=== PATIENT | male | born 1965 | race African-American/Black ===

== ENCOUNTER 2016-09-03 22:10 | Emergency (ER) | payer SELFPAY ==
[~2016-09-03] VITALS: Ht 193 cm; Wt 113.0 kg
[2016-09-04] MEDS ORDERED: KETOROLAC 60MG/2ML VIAL IM ONE (01:00)
[2016-09-04] MEDS ORDERED: DIAZEPAM 5 MG TABLET PO ONE (01:00)
[2016-09-04 01:26] VITALS: BP 150/82
== END 2016-09-04 02:28 | disposition home or self-care (01) ==
LOC: ER 22:15
DX: M54.5 Low back pain (principal); G89.29 Other chronic pain; S39.012A Strain of muscle, fascia and tendon of lower back, initial encounter; X50.9XXA Other and unspecified overexertion or strenuous movements or postures, initial encounter; Y93.89 Activity, other specified; Y92.59 Other trade areas as the place of occurrence of the external cause; Y99.8 Other external cause status
CPT/HCPCS: 72100; 96372; 99283; 99284; J1885

== ENCOUNTER 2018-08-24 14:00 | Emergency (ER) | payer SELFPAY ==
[~2018-08-24] VITALS: Ht 182.9 cm; Wt 90.0 kg
[2018-08-24] MEDS ORDERED: LORAZEPAM 2MG/ML CPJ ONE (15:25)
[2018-08-24] MEDS ORDERED: LEVETIRACETAM 500MG PREMIX 100 ML IV ONE ×2 (15:45)
[2018-08-24] MEDS ORDERED: SODIUM CHLORIDE 0.9% 1,000 ML IV ONE (15:48)
[2018-08-24 16:18] LABS: BASOPHILS % 0.2 % (0.0-2.0); HEMATOCRIT. 37.3 % (42.0-52.0); HEMOGLOBIN. 12.2 g/dL (14.0-18.0); LYMPHOCYTES % 14.3 % (20.0-50.0); MEAN CORPUSCULAR HEMOGLOBIN 31.3 pg (28.0-32.0); MEAN CORPUSCULAR VOLUME 95.3 fL (80.0-94.0); MEAN PLATELET VOLUME 8.3 fl (7.4-10.4); MONOCYTES % 5.3 % (2.0-8.0); NEUTROPHILS % 80.2 % (40.0-76.0); PLATELET 207 x1000/uL (130-400); RED BLOOD CELL COUNT 3.91 mill/uL (4.7-6.1); RED CELL DISTRIBUTION WIDTH 14.8 % (11.6-14.6)
[2018-08-24 16:21] LABS: CHLORIDE 103 mEq/L (98-107)
[2018-08-24 16:22] LABS: INR 1.1; PROTHROMBIN TIME 10.8 sec (9.6-11.0)
[2018-08-24 16:25] LABS: ETHANOL BLOOD < 10 mg/dL
[2018-08-24] MEDS ORDERED: LORAZEPAM 2MG/ML CPJ IV ONE (16:30)
[2018-08-24 20:32] LABS: CLARITY URINE CLEAR (CLEAR); COLOR URINE YELLOW (YELLOW); KETONES URINE 2+ (NEGATIVE); LEUKOCYTE ESTERASE URINE NEGATIVE (NEGATIVE); NITRITE URINE NEGATIVE (NEGATIVE); OCCULT BLOOD URINE NEGATIVE (NEGATIVE); PH URINE 6.5 (4.5-8.0); PROTEIN URINE NEGATIVE (NEGATIVE); SPECIFIC GRAVITY URINE 1.022 (1.005-1.030); UROBILINOGEN URINE 0.2 E.U./dL (0.2-1.0)
[2018-08-24 20:53] LABS: *BARBITURATES SCREEN URINE NEGATIVE (NEGATIVE); *BENZODIAZEPINES SCREEN URINE NEGATIVE (NEGATIVE); *COCAINE SCREEN URINE NEGATIVE (NEGATIVE)
[2018-08-24 20:54] LABS: CANNABINOID URINE SCREEN PRESUMTIVE POSITIVE (NEGATIVE); METHADONE URINE SCREEN NEGATIVE (NEGATIVE); OPIATES URINE SCREEN NEGATIVE (NEGATIVE); PHENCYCLIDINE URINE SCREEN NEGATIVE (NEGATIVE)
[2018-08-24 20:55] LABS: *AMPHETAMINES SCREEN URINE NEGATIVE (NEGATIVE)
[2018-08-24 21:05] VITALS: BP 128/62
== END 2018-08-24 21:49 | disposition left against medical advice (07) ==
LOC: ER 14:00 → EDBEDREQ 18:45 → ENRESERV 20:47 → CANRESERV 20:47 → ER 21:49 → CANBEDREQ 23:02
DX: G40.901 Epilepsy, unspecified, not intractable, with status epilepticus (principal)
CPT/HCPCS: 36415; 70450; 71045; 80053; 80305; 80320; 81003; 85025; 85610; 93005; 96365; 96366; 96368; 96375; 99284; J1953; J2060; J7030; G0480

== ENCOUNTER 2018-12-10 10:08 | Emergency (ER) | payer SELFPAY ==
[~2018-12-10] VITALS: Ht 182.9 cm; Wt 92.0 kg
[2018-12-10 11:41] LABS: CLARITY URINE CLEAR (CLEAR); COLOR URINE YELLOW (YELLOW); KETONES URINE NEGATIVE (NEGATIVE); LEUKOCYTE ESTERASE URINE NEGATIVE (NEGATIVE); NITRITE URINE NEGATIVE (NEGATIVE); OCCULT BLOOD URINE NEGATIVE (NEGATIVE); PROTEIN URINE NEGATIVE (NEGATIVE)
[2018-12-10 11:46] LABS: CHLORIDE 108 mEq/L (98-107)
[2018-12-10 11:51] LABS: ETHANOL BLOOD < 10 mg/dL
[2018-12-10 11:52] LABS: BASOPHILS % 0.4 % (0.0-2.0); EOSINOPHILS % 0.5 % (0.0-5.0); HEMATOCRIT. 39.7 % (42.0-52.0); HEMOGLOBIN. 13.4 g/dL (14.0-18.0); LYMPHOCYTES % 20.7 % (20.0-50.0); MEAN CORPUSCULAR HEMOGLOBIN 30.9 pg (28.0-32.0); MEAN CORPUSCULAR VOLUME 91.5 fL (80.0-94.0); MEAN PLATELET VOLUME 9.1 fl (7.4-10.4); MONOCYTES % 6.5 % (2.0-8.0); NEUTROPHILS % 71.9 % (40.0-76.0); PLATELET 147 x1000/uL (130-400); RED BLOOD CELL COUNT 4.33 mill/uL (4.7-6.1); RED CELL DISTRIBUTION WIDTH 13.9 % (11.6-14.6)
[2018-12-10 11:53] LABS: *AMPHETAMINES SCREEN URINE NEGATIVE (NEGATIVE); *BARBITURATES SCREEN URINE NEGATIVE (NEGATIVE); *BENZODIAZEPINES SCREEN URINE PRESUMTIVE POSITIVE (NEGATIVE); *COCAINE SCREEN URINE NEGATIVE (NEGATIVE)
[2018-12-10 11:54] LABS: CANNABINOID URINE SCREEN PRESUMTIVE POSITIVE (NEGATIVE); METHADONE URINE SCREEN NEGATIVE (NEGATIVE); OPIATES URINE SCREEN NEGATIVE (NEGATIVE); PHENCYCLIDINE URINE SCREEN NEGATIVE (NEGATIVE)
[2018-12-10] MEDS ORDERED: LEVETIRACETAM 1000MG/100ML 100 ML IV ONE (12:00)
[2018-12-10 12:08] LABS: CARBAMAZEPINE < 0.5 ug/mL (4-12); PHENOBARBITAL < 2.1 ug/mL (15.0-40.0); VALPROIC ACID < 3.0 ug/mL (50-100)
[2018-12-10 13:49] VITALS: BP 125/75
== END 2018-12-10 14:09 | disposition home or self-care (01) ==
LOC: ER 10:08
DX: G40.909 Epilepsy, unspecified, not intractable, without status epilepticus (principal)
CPT/HCPCS: 36415; 80053; 80156; 80165; 80184; 80185; 80305; 80320; 81003; 82962; 85025; 96365; 99283; J1953; G0480

== ENCOUNTER 2018-12-30 09:14 | Emergency (ER) | payer MEDICAID ==
[~2018-12-30] VITALS: Ht 190.5 cm; Wt 92.0 kg
[2018-12-30] MEDS ORDERED: [UNRECOGNIZED DRUG - REMARK] (09:35)
[2018-12-30] MEDS ORDERED: HYDROCODONE/ACETAMINOPHEN 5/325MG TABLET PO ONE (10:45)
[2018-12-30 10:51] VITALS: BP 118/75
== END 2018-12-30 12:18 | disposition home or self-care (01) ==
LOC: ER 09:14
DX: S92.252A Displaced fracture of navicular [scaphoid] of left foot, initial encounter for closed fracture (principal); Y08.89XA Assault by other specified means, initial encounter; Y93.89 Activity, other specified; Y92.89 Other specified places as the place of occurrence of the external cause; Y99.8 Other external cause status
CPT/HCPCS: 29125; 73130; 73630; 99283

== ENCOUNTER 2019-06-22 17:21 | Emergency (ER) | payer MEDICAID ==
[~2019-06-22] VITALS: Ht 195.6 cm; Wt 92.0 kg
[~2019-06-22 17:21] MED LIST: [UNRECOGNIZED DRUG - REMARK]
[2019-06-22 17:33] VITALS: BP 139/83
== END 2019-06-22 21:42 | disposition home or self-care (01) ==
LOC: ER 17:21
DX: Z46.89 Encounter for fitting and adjustment of other specified devices (principal)
CPT/HCPCS: 29125; 99283

== ENCOUNTER 2019-08-02 12:01 | Emergency (ER) | payer MEDICAID ==
[~2019-08-02] VITALS: Ht 177.8 cm; Wt 100.0 kg
[2019-08-02] MEDS ORDERED: SODIUM CHLORIDE 0.9% 1,000 ML IV ONE (12:31)
[2019-08-02] MEDS ORDERED: LEVETIRACETAM 500MG PREMIX 100 ML IV ONE (12:45)
[2019-08-02] MEDS ORDERED: LORAZEPAM 2MG/ML CPJ IV ONE (12:45)
[2019-08-02] MEDS ORDERED: LORAZEPAM 2MG/ML CPJ ONE (12:51)
[2019-08-02 13:03] LABS: BASOPHILS % 0.4 % (0.0-2.0); HEMATOCRIT. 44.7 % (42.0-52.0); HEMOGLOBIN. 15.2 g/dL (14.0-18.0); LYMPHOCYTES % 33.7 % (20.0-50.0); MEAN CORPUSCULAR HEMOGLOBIN 32.7 pg (28.0-32.0); MEAN CORPUSCULAR VOLUME 96.3 fL (80.0-94.0); MONOCYTES % 8.2 % (2.0-8.0); NEUTROPHILS % 56.7 % (40.0-76.0); PLATELET 123 x1000/uL (130-400); RED BLOOD CELL COUNT 4.64 mill/uL (4.7-6.1); RED CELL DISTRIBUTION WIDTH 14.2 % (11.6-14.6)
[2019-08-02 13:09] LABS: CHLORIDE 104 mEq/L (98-107)
[2019-08-02 13:16] LABS: VALPROIC ACID <3.0 ug/mL ug/mL (50-100)
[2019-08-02 13:22] LABS: CARBAMAZEPINE < 0.5 ug/mL (4-12); PHENOBARBITAL < 2.1 ug/mL (15.0-40.0)
[2019-08-02 16:47] VITALS: BP 108/70
== END 2019-08-02 16:50 | disposition home or self-care (01) ==
LOC: ER 12:12
DX: G40.909 Epilepsy, unspecified, not intractable, without status epilepticus (principal); N39.498 Other specified urinary incontinence; R03.0 Elevated blood-pressure reading, without diagnosis of hypertension; Z76.0 Encounter for issue of repeat prescription
CPT/HCPCS: 36415; 80053; 80156; 80165; 80184; 80185; 82962; 85025; 96365; 96375; 99285; J1953; J2060; J7030

== ENCOUNTER 2019-10-27 13:15 | Emergency (ER) | payer MEDICAID ==
[~2019-10-27] VITALS: Ht 190.5 cm; Wt 95.0 kg
[2019-10-27] MEDS ORDERED: HYDROCODONE/ACETAMINOPHEN 5/325MG TABLET PO ONE (15:45)
[2019-10-27] MEDS ORDERED: CYCLOBENZAPRINE 10MG TABLET PO ONE (16:45)
[2019-10-27 19:19] VITALS: BP 122/79
== END 2019-10-27 19:21 | disposition home or self-care (01) ==
LOC: ER 13:15
DX: S32.018A Other fracture of first lumbar vertebra, initial encounter for closed fracture (principal); X58.XXXA Exposure to other specified factors, initial encounter; M54.5 Low back pain; Y93.89 Activity, other specified; Y92.89 Other specified places as the place of occurrence of the external cause; Y99.8 Other external cause status
CPT/HCPCS: 72070; 72100; 73110; 73560; 99284

== ENCOUNTER 2019-11-20 16:42 | Emergency (ER) | payer MEDICAID ==
[~2019-11-20] VITALS: Ht 190.5 cm; Wt 91.0 kg
[2019-11-20] MEDS ORDERED: IBUPROFEN 800MG TABLET PO ONE (18:15)
[2019-11-20] MEDS ORDERED: ACETAMINOPHEN 500MG TABLET PO ONE (18:15)
[2019-11-20 18:19] VITALS: BP 108/59
== END 2019-11-20 20:25 | disposition home or self-care (01) ==
LOC: ER 16:42
DX: S63.592A Other specified sprain of left wrist, initial encounter (principal); M79.642 Pain in left hand; R03.0 Elevated blood-pressure reading, without diagnosis of hypertension; Y09 Assault by unspecified means; Y93.9 Activity, unspecified; Y92.89 Other specified places as the place of occurrence of the external cause
CPT/HCPCS: 29125; 73110; 73130; 99283

== ENCOUNTER 2020-02-09 07:05 | Emergency (ER) | payer MEDICAID ==
[~2020-02-09] VITALS: Ht 188 cm; Wt 100.0 kg
[2020-02-09] MEDS ORDERED: SODIUM CHLORIDE 0.9% 1,000 ML IV ONE (08:00)
[2020-02-09] MEDS ORDERED: LEVETIRACETAM 1000MG/100ML 100 ML IV ONE (08:00)
[2020-02-09 08:56] LABS: BASOPHILS % 0.4 % (0.0-2.0); EOSINOPHILS % 1.6 % (0.0-5.0); HEMATOCRIT. 39.2 % (42.0-52.0); HEMOGLOBIN. 13.1 g/dL (14.0-18.0); LYMPHOCYTES % 25.6 % (20.0-50.0); MEAN CORPUSCULAR HEMOGLOBIN 32.5 pg (28.0-32.0); MEAN CORPUSCULAR VOLUME 97.2 fL (80.0-94.0); MEAN PLATELET VOLUME 9.7 fl (7.4-10.4); MONOCYTES % 10.3 % (2.0-8.0); NEUTROPHILS % 62.1 % (40.0-76.0); PLATELET 84 x1000/uL (130-400); RED BLOOD CELL COUNT 4.03 mill/uL (4.7-6.1); RED CELL DISTRIBUTION WIDTH 15.3 % (11.6-14.6)
[2020-02-09 09:04] LABS: CHLORIDE 108 mEq/L (98-107)
[2020-02-09 09:10] LABS: ETHANOL BLOOD < 10 mg/dL
[2020-02-09 09:15] LABS: CREATINE KINASE 160 IU/L (39-308)
[2020-02-09 09:19] LABS: CARBAMAZEPINE < 0.5 ug/mL (4-12); PHENOBARBITAL < 2.1 ug/mL (15.0-40.0); VALPROIC ACID < 3.0 ug/mL (50-100)
[2020-02-09 10:14] LABS: CLARITY URINE CLEAR (CLEAR); COLOR URINE YELLOW (YELLOW); KETONES URINE NEGATIVE (NEGATIVE); LEUKOCYTE ESTERASE URINE NEGATIVE (NEGATIVE); NITRITE URINE NEGATIVE (NEGATIVE); OCCULT BLOOD URINE NEGATIVE (NEGATIVE); PH URINE 5.5 (4.5-8.0); PROTEIN URINE NEGATIVE (NEGATIVE); SPECIFIC GRAVITY URINE 1.028 (1.005-1.030)
[2020-02-09 10:29] LABS: *AMPHETAMINES SCREEN URINE NEGATIVE (NEGATIVE)
[2020-02-09 10:31] LABS: *BARBITURATES SCREEN URINE NEGATIVE (NEGATIVE); *BENZODIAZEPINES SCREEN URINE NEGATIVE (NEGATIVE); *COCAINE SCREEN URINE NEGATIVE (NEGATIVE); CANNABINOID URINE SCREEN PRESUMTIVE POSITIVE (NEGATIVE); METHADONE URINE SCREEN NEGATIVE (NEGATIVE); OPIATES URINE SCREEN NEGATIVE (NEGATIVE); PHENCYCLIDINE URINE SCREEN NEGATIVE (NEGATIVE)
[2020-02-09 12:23] VITALS: BP 131/74
== END 2020-02-09 12:27 | disposition home or self-care (01) ==
LOC: ER 07:05
DX: R56.9 Unspecified convulsions (principal)
CPT/HCPCS: 36415; 70450; 71045; 80053; 80156; 80165; 80184; 80185; 80305; 80320; 81003; 82550; 84484; 85025; 96365; 99285; J1953; J7030; G0480

== ENCOUNTER 2020-02-24 12:55 | Emergency (ER) | payer MEDICAID ==
[~2020-02-24] VITALS: Ht 190.5 cm; Wt 90.0 kg
[2020-02-24] MEDS ORDERED: ACETAMINOPHEN WITH CODEINE 300/30MG TABLET PO ONE (14:00)
[2020-02-24 14:15] VITALS: BP 140/78
== END 2020-02-24 14:15 | disposition home or self-care (01) ==
LOC: ER 12:55
DX: S60.211A Contusion of right wrist, initial encounter (principal); L73.9 Follicular disorder, unspecified; X58.XXXA Exposure to other specified factors, initial encounter; Y93.89 Activity, other specified; Y92.89 Other specified places as the place of occurrence of the external cause; R03.0 Elevated blood-pressure reading, without diagnosis of hypertension; G40.909 Epilepsy, unspecified, not intractable, without status epilepticus
CPT/HCPCS: 99283

== ENCOUNTER 2021-08-03 08:02 | Emergency (ER) | payer MEDICAID ==
[~2021-08-03] VITALS: Ht 182.9 cm; Wt 91.0 kg
[2021-08-03] MEDS ORDERED: SODIUM CHLORIDE 0.9% 1,000 ML IV ONE (08:30)
[2021-08-03 10:28] LABS: BASOPHILS % 0.2 % (0.0-2.0); EOSINOPHILS % 1.6 % (0.0-5.0); HEMATOCRIT. 40.4 % (42.0-52.0); HEMOGLOBIN. 13.3 g/dL (14.0-18.0); LYMPHOCYTES % 39.1 % (20.0-50.0); MEAN CORPUSCULAR HEMOGLOBIN 32.9 pg (28.0-32.0); MEAN CORPUSCULAR VOLUME 100.1 fL (80.0-94.0); NEUTROPHILS % 52.1 % (40.0-76.0); PLATELET 121 x1000/uL (130-400); RED BLOOD CELL COUNT 4.04 mill/uL (4.7-6.1); RED CELL DISTRIBUTION WIDTH 14.1 % (11.6-14.6)
[2021-08-03 10:35] LABS: CHLORIDE 108 mEq/L (98-107)
[2021-08-03 10:47] LABS: CREATINE KINASE 293 IU/L (39-308)
[2021-08-03 12:24] VITALS: BP 133/82
== END 2021-08-03 12:24 | disposition home or self-care (01) ==
LOC: ER 08:10
DX: R56.9 Unspecified convulsions (principal); I10 Essential (primary) hypertension; E16.2 Hypoglycemia, unspecified
CPT/HCPCS: 36415; 80053; 82550; 85025; 93005; 96360; 99284; J7030